=== PATIENT | female | born 1950 | race Caucasian/White ===

== ENCOUNTER 2018-10-26 22:21 | Emergency (ER) | payer MEDICARE, OTHER ==
[~2018-10-26] VITALS: Ht 157.5 cm; Wt 81.6 kg
[2018-10-26] MEDS ORDERED: normal saline 1000ML IV soln IVB ONE (22:40)
[2018-10-26] MEDS ORDERED: iohexol 350MG/ML 100ml bottle IV ONE (22:42)
--- NOTE | 2018-10-26 22:56 | NUR ---
NURSE JOAQUIM LOZANO CALLING IN [facility]. NO ANSWER TO PAGE
--- NOTE | 2018-10-26 23:33 | NUR ---
VASULAR AT BEDSIDE
[2018-10-27 01:25] VITALS: BP 155/72
== END 2018-10-27 01:27 | disposition home or self-care (01) ==
LOC: ER 22:22
DX: J20.9 Acute bronchitis, unspecified (principal); J22 Unspecified acute lower respiratory infection; M25.471 Effusion, right ankle; Z98.890 Other specified postprocedural states; Z88.5 Allergy status to narcotic agent
CPT/HCPCS: 71275; 93005; 93971; 99284; J7030; Q9967

== ENCOUNTER 2021-02-24 08:37 | Outpatient (CLI) | payer MEDICARE, OTHER ==
[2021-02-24 09:02] LABS: TOTAL HEMOGLOBIN 13.6 G/dl (12.0-16.0)
== END 2021-02-24 23:59 | disposition home or self-care (01) ==
LOC: RT 08:37
PROVIDERS: ATTEND Family Medicine
DX: R06.02 Shortness of breath (principal)
CPT/HCPCS: 85018; 94010; 94727; 94729